=== PATIENT | female | born 1990 | race Caucasian/White ===

== ENCOUNTER 2018-08-07 09:15 | Emergency (ER) | payer MEDICAID ==
[2018-08-07] MEDS ORDERED: 0.9 % SODIUM CHLORIDE 1,000 ML BAG IV ONE (09:32)
--- NOTE | 2018-08-07 09:41 | Emergency Department Record ---
History of Present Illness - General Chief complaint: Nausea, Vomiting, Diarrhea Stated complaint: LOOSE STOOLS/NAUSEA Time Seen by Provider: 08/07/18 09:32 Source: Patient Mode of Arrival: Wheelchair Limitations: No limitations - History of Present Illness Initial comments: [facility] of "Light headed" with low blood pressure. Pt relates 4 episodes of soft stool yesterday and two this AM. No watery stool, no blood in stool, mild nausea without vomiting. There is complaint of some upper abdominal cramping improved after stools. No hx of travel, new or different foods, no recent AB treatment, no sick contacts or family members. Recent changes in psych meds by her doctor. Pt is "paranoid schizophrenic" without suicidal idations or recent issues. Onset/Timin -: Days(s) Description of Diarrhea: Water Associated Abdominal Pain: Yes Location: Diffuse, Epigastric Severity: Moderate Severity scale (1-10): 5 Quality: Other Consistency: Constant Improves with: None Worsens with: None Associated Symptoms: Nausea/vomiting - Related Data Allergies Allergy/AdvReac Type Severity Reaction Status Date / Time Iodinated Contrast- Oral and Allergy Unknown Unverified 05/22/18 10:03 IV Dye [IV DYE, IODINE CONTAINING CONTRAST ] Travel Screening - Travel/Exposure Within Last 30 Days Have you traveled within the last 30 days?: No Review of Systems Constitutional: Denies: Chills, Fever, Malaise, Weight change Eyes: Denies: Eye discharge, Photophobia ENT: Denies: Congestion, Ear pain Respiratory: Denies: Cough, Hemoptysis Cardiovascular: Denies: Arrhythmia, Chest pain, Syncope Gastrointestinal: Reports: As per HPI, Nausea. Denies: Constipation, Hematochezia, Melena, Vomiting Genitourinary: Denies: Abnormal menses, Dysuria Musculoskeletal: Denies: Arthralgia, Back pain Skin: Denies: Bruising Neurological: Reports: Other (dizziness ). Denies: Headache, Numbness, Weakness Psychiatric: Denies: Anxiety, Auditory hallucinations, Suicidal thoughts, Visual hallucinations Hematological/Lymphatic: Denies: Anemia Past Medical History - SOCIAL HISTORY Smoking Status: Never smoker Alcohol Use: None Drug Use: None - RESPIRATORY Hx Respiratory Disorders: No - CARDIOVASCULAR Hx Cardio Disorders: Yes Hx Hypertension: Yes - NEURO Hx Neuro Disorders: No - GI Hx GI Disorders: No - Hx Genitourinary Disorders: No - ENDOCRINE Hx Endocrine Disorders: No - MUSCULOSKELETAL Hx Musculoskeletal Disorders: No - PSYCH Hx Psych Problems: Yes Hx Depression: Yes (bipolor/borderline personality disorder) Comment:: schizophrenia - HEMATOLOGY/ONCOLOGY Hx Hematology/Oncology Disorders: No Family Medical History Any Significant Family History?: No Physical Exam - General General Appearance: Alert, Oriented x3, Cooperative, No acute distress - Head Head exam: Normal inspection - Eye Eye exam: Normal appearance, PERRL - ENT ENT exam: Normal exam, Mucous membranes moist, Normal external ear exam, Normal orophraynx, TM's normal bilaterally Ear exam: Normal external inspection Nasal Exam: Normal inspection Mouth exam: Normal external inspection Throat exam: Normal inspection - Neck Neck exam: Full ROM. negative: Meningismus, Tenderness - Respiratory Respiratory exam: Normal lung sounds bilaterally. negative: Respiratory distress, Rhonchi, Wheezes - Cardiovascular Cardiovascular Exam: Regular rate, Normal rhythm. negative: Tachycardia Peripheral Pulses: 2+: Radial (R), Radial (L) - GI/Abdominal GI/Abdominal exam: Soft, Normal bowel sounds. negative: Distended, Guarding, Rebound, Tenderness - Extremities Extremities exam: Normal inspection, Full ROM. negative: Joint swelling - Back Back exam: Reports: Normal inspection - Neurological Neurological exam: Abnormal gait, Alert, Normal gait, Oriented X3 - Psychiatric Psychiatric exam: Normal affect, Normal mood. negative: Anxious, Depressed, Flat affect, Homicidal ideation, Suicidal ideation - Skin Skin exam: Normal color. negative: Rash Course Vital Signs 08/07/18 09:18 Temperature 97.7 F Pulse Rate 66 Respiratory 20 Rate Blood Pressure 150/74 Pulse Ox 99 - Reevaluation(s) Reevaluation #1: 08/07/18 09:43 Seen on arrival with BP 110/78. IV fluids and lab ordered. Reevaluation #2: 08/07/18 10:24 Pt feeling better. BP stable and orthostatics neg. Up to bathroom without issue. Labs reviewed and normal. Has ride home. Discussed home plan with light diet and fluids. Follow with family doctor as scheduled or return here if any concerns or issues. Questions answered. Medical Decision Making - Lab Data Result diagrams: 08/07/18 09:25 08/07/18 09:25 Disposition Disposition: Discharge Clinical Impression: Dizziness Disposition: Home, Self-Care Condition: (1) Good Instructions: Acute Diarrhea (ED), Dizziness (ED) Additional Instructions: Continue medications as prescribed. Family doctor follow up in 2-3 days Return to ED as needed. Forms: Patient Portal Access Time of Disposition: 10:27 Quality - Quality Measures Quality Measures: N/A - Blood Pressure Screening Does Patient Have Any of the Following: No Blood Pressure Classification: Hypertensive Reading Systolic Measurement: 150 Diastolic Measurement: 74 Screening for High Blood Pressure: < Pre-Hypertensive BP, F/U Documented > [ [id number]] Pre-Hypertensive Follow-up Interventions: Follow-up with rescreen every year.
[2018-08-07 09:53] LABS: BASO % 0.6 % (0-6); EOS % 6.5 % (0-6); GRAN % 49.4 % (47-80); HEMATOCRIT 42.1 % (35.0-47.0); HEMOGLOBIN 13.6 gm/dl (11.6-16.0); LYMPH % 34.5 % (16-45); MEAN CELL VOLUME 88.3 fl (81-97); MEAN CORPUSCULAR HEMOGLOBIN 28.5 pg (27-33); MEAN CORPUSCULAR HGB CONC 32.3 g/dl (32-36); MEAN PLATELET VOLUME 11.1 fl (7.4-10.4); PLATELET COUNT 182 K/uL (130-400); RED BLOOD COUNT 4.77 M/uL (3.80-5.40); WHITE BLOOD COUNT W/O DIFF 8.1 K/uL (4.2-12.2)
[2018-08-07 09:54] LABS: BLOOD UREA NITROGEN 22 mg/dL (6-20); CREATININE 0.7 mg/dL (0.5-0.9); EST GLOMERULAR FILTRATION RATE > 60 mL/min
[2018-08-07 09:57] LABS: GLUCOSE,RANDOM 73 mg/dL (74-109)
== END 2018-08-07 11:00 | disposition home or self-care (01) ==
LOC: ER 09:15
DX: R42 Dizziness and giddiness (principal); R10.13 Epigastric pain; R11.0 Nausea; R19.7 Diarrhea, unspecified; I10 Essential (primary) hypertension
CPT/HCPCS: 80048; 80164; 85025; 96360; 99284; J7030

== ENCOUNTER 2019-01-19 17:59 | Emergency (ER) | payer SELFPAY ==
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
[2019-01-19] MEDS ORDERED: 0.9 % SODIUM CHLORIDE 1,000 ML BAG IV ONE (18:15)
[2019-01-19] MEDS ORDERED: ACETAMINOPHEN 1,000 MG/100 ML BTL IVPB ONE (18:21)
[2019-01-19 18:32] LABS: ABSOLUTE NEUTROPHIL COUNT 2.31; BASO % 0.3 % (0-6); EOS % 6.2 % (0-6); GRAN % 36.7 % (47-80); HEMOGLOBIN 12.2 gm/dl (11.6-16.0); LYMPH % 49.7 % (16-45); MEAN CELL VOLUME 90.9 fl (81-97); MEAN CORPUSCULAR HEMOGLOBIN 30.8 pg (27-33); MEAN CORPUSCULAR HGB CONC 33.9 g/dl (32-36); MEAN PLATELET VOLUME 10.3 fl (7.4-10.4); MONO % 7.1 % (0-9); PLATELET COUNT 271 K/uL (130-400); RED BLOOD COUNT 3.96 M/uL (3.80-5.40); RED CELL DISTRIBUTION WIDTH 14.5 % (11.5-14.5); WHITE BLOOD COUNT W/O DIFF 6.3 K/uL (4.2-12.2)
[2019-01-19 18:38] LABS: BLOOD UREA NITROGEN 12 mg/dL (6-20); CREATININE 0.7 mg/dL (0.5-0.9); EST GLOMERULAR FILTRATION RATE > 60 mL/min
[2019-01-19 18:39] LABS: BILIRUBIN,TOTAL < 0.20 mg/dL (0.2-1.0); TOTAL PROTEIN 6.9 g/dL (6.6-8.7)
[2019-01-19 18:41] LABS: GLUCOSE,RANDOM 110 mg/dL (74-109)
[2019-01-19 18:44] LABS: ALB/GLOB RATIO 1.7 (1.1-1.8); ALBUMIN 4.3 g/dL (4.0-5.0); ALKALINE PHOSPHATASE 62 U/L (35-104); ALT/SGPT 15 U/L (<33); AST/SGOT 16 U/L (10.0-35.0)
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
== END 2019-01-19 20:16 | disposition home or self-care (01) ==
LOC: ER 17:59
DX: S16.1XXA Strain of muscle, fascia and tendon at neck level, initial encounter (principal); R51 Headache; V48.5XXA Car driver injured in noncollision transport accident in traffic accident, initial encounter; Y92.410 Unspecified street and highway as the place of occurrence of the external cause; I10 Essential (primary) hypertension; Q65.89 Other specified congenital deformities of hip
CPT/HCPCS: 70450; 71046; 72125; 72170; 80053; 84703; 85025; 93005; 93010; 96365; 99284; J7030